=== PATIENT | female | born 1940 | race Caucasian/White ===

== ENCOUNTER 2017-03-17 07:47 | Emergency (ER) | payer MEDICARE, OTHER ==
[~2017-03-17] VITALS: Ht 157.5 cm; Wt 59.0 kg
[2017-03-17 07:59] VITALS: BP 144/66; PULSE 93; RESP 16; TEMP 97.8; O2SAT 95
[2017-03-17] MEDS ORDERED: ACETAMINOPHEN 325 MG TAB PO ONE (08:45)
--- NOTE | 2017-03-17 08:49 | PD ---
HPI Chief Complaint: Musculoskeletal Complaint Time Seen by Provider: 08:39 Travel History International Travel<30 days: No Contact w/Intl Traveler<30days: No Traveled to known affect area: No History of Present Illness HPI This 76-year-old female is complaining of lower back pain. The pain radiates down the lateral aspect of the right leg she has pain when she tries to put weight on the leg. She is having some mild pain yesterday. She twisted to get out of her car and she says the pain got a lot worse. She had a similar pain last year and went to therapy and says she got better. He does not recall having x-rays done at that time. It was thought that she had a disc in her back that was causing the pain. She has no history of cancer. She does not have been having any fever or chills. She does have a history of diabetes. He went to her doctor yesterday. Get a referral to physical therapy and he gave her good comfort ibuprofen. She took an ibuprofen but it made her nauseated PFSH Past Medical History Diabetes: Yes Social History Tobacco Use: No Allergies-Medications (Allergen,Severity, Reaction): Coded Allergies: No Known Allergies (Unverified , 03/17/17) Reported Meds & Prescriptions Reported Meds & Active Scripts Active Reported Aspirin 81 Mg Chew 81 Mg CHEW DAILY Invokana (Canagliflozin) 300 Mg Tab 300 Mg PO DAILY Take before 1st meal of day. Potassium Chloride ER (Potassium Chloride) 10 Meq Cap 10 Meq PO DAILY Metformin (Metformin HCl) 500 Mg Tab 500 Mg PO BIDPC Amlodipine-Benazepril 5-20 Mg Cap 1 Cap PO DAILY Atorvastatin (Atorvastatin Calcium) 40 Mg Tab 40 Mg PO HS Review of Systems General / Constitutional: No: Fever, Chills Eyes: No: Diploplia, Blurred Vision HENT: No: Headaches, Vertigo Cardiovascular: No: Chest Pain or Discomfort, Palpitations Respiratory: No: Cough, Shortness of Breath Gastrointestinal: Positive: Nausea, No: Vomiting Physical Exam Narrative GENERAL: Well-developed female SKIN: Focused skin assessment warm/dry. HEAD: Atraumatic. Normocephalic. EYES: Pupils equal and round. No scleral icterus. No injection or drainage. ENT: No nasal bleeding or discharge. Mucous membranes pink and moist. NECK: Trachea midline. No JVD. CARDIOVASCULAR: Regular rate and rhythm. No murmur appreciated. RESPIRATORY: No accessory muscle use. Clear to auscultation. Breath sounds equal bilaterally. GASTROINTESTINAL: Abdomen soft, non-tender, nondistended. Hepatic and splenic margins not palpable. MUSCULOSKELETAL: No obvious deformities. No clubbing. No cyanosis. No edema. She has some tenderness in the right sacroiliac area. There is really not midline tenderness of the back area she also has some tenderness in the right posterior pelvis. She has pain with straight leg raising at 45 on the right. Sensation appears intact. He has good strength in dorsiflexion. Plantar flexion on the right seems weak that this may be secondary to pain she has when she plantar flexes NEUROLOGICAL: Awake and alert. No obvious cranial nerve deficits. Motor grossly within normal limits. Normal speech. PSYCHIATRIC: Appropriate mood and affect; insight and judgment normal. Data Data Last Documented VS Vital Signs Date Time Temp Pulse Resp B/P (MAP) Pulse Ox O2 Delivery O2 Flow Rate FiO2 03/17/17 07:59 97.8 93 16 144/66 (92) [address] Pelvis W/O Iv Contrast (03/17/17 ) Ct Lumb Spine W/O Contrast (03/17/17 ) Acetaminophen (Tylenol) (03/17/17 08:45) MDM Medical Decision Making Medical Screen Exam Complete: Yes Emergency Medical Condition: Yes Medical Record Reviewed: Yes Differential Diagnosis Differential includes radiculopathy, herniated disc, pelvic insufficiency fracture Narrative Course CT scans of the pelvis and lumbar spine were obtained. CT of the pelvis does not reveal an etiology for the pain. On CT of the lumbar spine is multilevel degenerative spondylosis of the lumbar spine most prominent at L4 to S1 with moderate central canal narrowing and variable mild to moderate neural foraminal stenosis. Patient is scheduled for chemotherapy on . I will prescribe tramadol for her to use for pain as the ibuprofen did not agree with her. Diagnosis Primary Impression: Lumbar radiculopathy, right Scripts Tramadol (Tramadol) 50 Mg Tab 50 MG PO Q6H Y for PAIN for 30 Days, #120 TAB 0 Refills Prov: Atul Carias MD 03/17/17 Disposition: 01 DISCHARGE HOME Condition: Stable Atul Carias MD Mar 17, 2017 08:49
[2017-03-17] MEDS ORDERED: ASPI-516 CHEW (08:55)
[2017-03-17] MEDS ORDERED: POTA10CA PO (08:55)
[2017-03-17] MEDS ORDERED: ATOR40TA16 PO (08:55)
[2017-03-17] MEDS ORDERED: METF500T PO (08:55)
[2017-03-17] MEDS ORDERED: AMLO5CAP3 PO (08:55)
[2017-03-17] MEDS ORDERED: CANA300T PO (08:55)
--- NOTE | 2017-03-17 09:18 | RADRPT ---
EXAM DATE/TIME: 03/17/2017 08:53 [facility] COMPARISON: No previous studies available for comparison. INDICATIONS : Right posterior pelvis pain. ORAL CONTRAST: No oral contrast ingested. RADIATION DOSE: 20.60 CTDIvol (mGy) MEDICAL HISTORY : Diabetes mellitus type 2. SURGICAL HISTORY : None. ENCOUNTER: Initial ACUITY: 1 day PAIN SCALE: 10/10 LOCATION: Right pelvis TECHNIQUE: Volumetric scanning of the pelvis was performed. Using automated exposure control and adjustment of the mA and/or kV according to patient size, radiation dose was kept as low as reasonably achievable t o obtain optimal diagnostic quality images. DICOM format image data is available electronically for review and comparison. FINDINGS: BOWEL/MESENTERY: The visualized small and large bowel demonstrate no acute abnormality. There is no free fluid. BLADDER: There is no wall thickening or mass. RETROPERITONEUM: There is no aneurysm or lymphadenopathy. REPRODUCTIVE: Within normal limits. INGUINAL: There is no lymphadenopathy or hernia. MUSCULOSKELETAL: Degenerative changes involving the lower lumbar spine. No pelvic fractures. CONCLUSION: 1. No acute abnormality to explain the patient's pain. Lencho Echavarria Jr., MD on March 17, 2017 at 9:13 Board Certified Radiologist. This report was verified electronically.
--- NOTE | 2017-03-17 09:37 | RADRPT ---
EXAM DATE/TIME: 03/17/2017 08:53 [facility] COMPARISON: No previous studies available for comparison. INDICATIONS : Right low back pain with radiculopathy down right leg. RADIATION DOSE: 27.64 CTDIvol (mGy) MEDICAL HISTORY : Diabetes mellitus type 2. SURGICAL HISTORY : None. ENCOUNTER: Initial ACUITY: 1 day PAIN SCALE: 10/10 LOCATION: Right lumbar spine TECHNIQUE: Volumetric scanning of the lumbar spine was performed. Multiplanar reconstructions in the sagittal, coronal and oblique axial planes were performed. Using automated exposure control and adjustment of the mA and/or kV according to patient size, radiation dose was kept as low as reasonably achievable t o obtain optimal diagnostic quality images. DICOM format image data is available electronically for review and comparison. FINDINGS: VERTEBRAE: Vertebral body heights are intact without evidence for acute bony fracture. ALIGNMENT: Mild dextroscoliosis of the lumbar spine centered at L3-4 level. Minimal, grade 1, 2 mm anteroli sthesis of L4 on L5 and 3 mm anterolisthesis of L5 on S1. Paravertebral soft tissues: 1.5 x 1.3 cm cyst in the superior pole of the right kidney. T12-L1: Moderate to severe disc space loss with anterolateral osteophytes and mild right facet arthropathy. T he mild eccentric right disc bulge. Slight effacement of the anterior right lateral recess. No signif icant bony central canal or neural foraminal stenosis. L1-L2: Mild disc space loss and anterior osteophytes. Posterior disc osteophyte complex with resultant mild effacement of the anterior thecal sac. Mild caudal left neural foraminal narrowing. L2-L3: Diffuse disc bulge slight eccentric to the right. Mild ligament flavum hypertrophy and facet arthropa thy. Mild effacement of the anterior thecal sac. No significant neural foraminal stenosis. L3-L4: Diffuse disc bulge with posterior disc osteophyte complex, mild right and moderate left facet arthrop athy. Central canal narrowing to 10 mm mild caudal left neural foraminal narrowing secondary to disc osteophyte complex. L4-L5: Vacuum disc phenomenon with diffuse disc bulge and moderate bilateral facet arthropathy. The ligament um flavum hypertrophy. Resultant central canal narrowing to 9 mm. Mild to moderate left caudal neural foraminal narrowing. L5-S1: Diffuse disc bulge with moderate bilateral facet arthropathy. Central canal narrowing to 8 mm. Modera te caudal bilateral neural foraminal narrowing. CONCLUSION: 1. 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 2. Please see above for description of each level. Isma Amado MD on March 17, 2017 at 9:20 Board Certified Radiologist. This report was verified electronically.
[2017-03-17] MEDS ORDERED: TRAM50TA PO (09:45)
== END 2017-03-17 10:03 | disposition home or self-care (01) ==
LOC: PHED 07:47
DX: M54.16 Radiculopathy, lumbar region (principal); E11.9 Type 2 diabetes mellitus without complications; X50.1XXA Overexertion from prolonged static or awkward postures, initial encounter
CPT/HCPCS: 72131; 72192; 99285